=== PATIENT | female | born 1965 ===

== ENCOUNTER 2017-08-28 20:45 | Observation (INO) | payer MEDICAID, MEDICARE ==
[2017-08-28 21:22] VITALS: BMI 28.0
--- NOTE | 2017-08-28 21:30 | ED PDOC ---
Arrival/HPI - General Historian: Patient - History of Present Illness Time/Duration: Prior to Arrival Symptom Onset: Gradual Symptom Course: Improving Activities at Onset: Rest Context: Sitting <Anil Smith - Last Filed: 08/29/17 00:22> <Davis Blackburn - Last Filed: 08/29/17 00:52> <Ibrahima Moscoso - Last Filed: 08/31/17 18:37> - General Chief Complaint: Shortness Of Breath Time Seen by Provider: 08/28/17 20:47 - History of Present Illness Narrative History of Present Illness (Text): 08/28/17 21:31 Patient is a 51 year old female with a past medical history of COPD, hypothyroidism, chronic pain, polysubstance abuse, and hyperlipidemia who presents with complaints of cough, shortness of breath, and generalized body aches. Patient states she was recently admitted to [facility] where she was being treated for a respiratory infection. Patient states she signed out against medical advice from [facility] because she felt as though she wasn't being treated well. Patient denies fevers, chills, chest pain, abdominal pain, nausea , vomiting, diarrhea. PMD: Dr. Matthews PMH: as above Surgical history: appendectomy, left ankle fusion, hysterectomy Family history: non-contributory (Anil Smith) Past Medical History - Provider Review Nursing Documentation Reviewed: Yes - Infectious Disease Hx of Infectious Diseases: None - Tetanus Immunization Tetanus Immunization: Unknown - Cardiac Hx Cardiac Disorders: Yes Hx Hypertension: Yes - Pulmonary Hx Respiratory Disorders: Yes Hx Asthma: Yes Hx Emphysema: Yes - Neurological Hx Neurological Disorder: No - HEENT Hx HEENT Disorder: No - Renal Hx Renal Disorder: No - Endocrine/Metabolic Hx Endocrine Disorders: Yes Hx Hypothyroidism: Yes - Hematological/Oncological Hx Blood Disorders: No - Integumentary Hx Dermatological Disorder: No - Musculoskeletal/Rheumatological Hx Musculoskeletal Disorders: Yes Hx Arthritis: Yes - Gastrointestinal Hx Gastrointestinal Disorders: No - Genitourinary/Gynecological Hx Genitourinary Disorders: No - Psychiatric Hx Psychophysiologic Disorder: Yes Hx Substance Use: Yes - Surgical History Other/Comment: throat - Anesthesia Hx Anesthesia: Yes Hx Anesthesia Reactions: No (pt will not answer) Hx Malignant Hyperthermia: No - Suicidal Assessment Feels Threatened In Home Enviroment: No <Anil Smith - Last Filed: 08/29/17 00:22> <Davis Blackburn - Last Filed: 08/29/17 00:52> <Ibrahima Moscoso - Last Filed: 08/31/17 18:37> - Patient History Narrative Patient History: COPD on 2L home oxygen, Hypothyroidism, Hyperlipidemia, Anxiety (Anil Smith) Family/Social History - Physician Review Nursing Documentation Reviewed: Yes Family/Social History: No Known Family HX Smoking Status: Former Smoker Hx Alcohol Use: No Hx Substance Use: Yes Substance used: percocet, xanax <Anil Smith - Last Filed: 08/29/17 00:22> Allergies/Home Meds <Anil Smith - Last Filed: 08/29/17 00:22> <Davis Blackburn - Last Filed: 08/29/17 00:52> <Ibrahima Moscoso - Last Filed: 08/31/17 18:37> Allergies/Adverse Reactions: Allergies FISH Allergy (Verified 08/31/17 12:22) SWELLING NSAIDS (Non-Steroidal Anti-Inflamma Allergy (Verified 08/31/17 12:22) SWELLING Penicillins Allergy (Verified 08/31/17 12:22) SHORTNESS OF BREATH seafood Allergy (Uncoded 08/31/17 12:22) SHORTNESS OF BREATH shellfish Allergy (Uncoded 08/31/17 12:22) SHORTNESS OF BREATH vitamin d Allergy (Uncoded 08/31/17 12:22) SWELLING Home Medications: Home Meds Medication Instructions Recorded Confirmed Atorvastatin [Lipitor] 40 mg PO HS 06/28/17 08/31/17 Gabapentin [Neurontin] 1,200 mg PO HS 06/28/17 08/31/17 Gabapentin [Neurontin] 600 mg PO DAILY 06/28/17 08/31/17 Levothyroxine [Levoxyl] 0.025 mg PO DAILY 06/28/17 08/31/17 Ondansetron HCl [Zofran] 4 mg PO BID 06/28/17 08/31/17 Alprazolam [Xanax] 2 mg PO TID 08/31/17 08/31/17 Tiotropium [place] [employer] Inhaler 1 puff INH DAILY 05/11/18 05/11/18 [Spiriva Inhalation Handihaler Device] oxyCODONE/Acetaminophen [Percocet 5 - 325 mg PO PRN PRN 08/31/17 08/31/17 5/325 mg Tab] Review of Systems - Review of Systems Constitutional: absent: Fatigue, Fevers Eyes: absent: Vision Changes Respiratory: SOB, Cough Cardiovascular: absent: Chest Pain, Palpitations Gastrointestinal: absent: Abdominal Pain, Diarrhea, Nausea, Vomiting Musculoskeletal: Back Pain Neurological: absent: Headache, Dizziness Psychiatric: Anxiety <Anil Smith - Last Filed: 08/29/17 00:22> Physical Exam Vital Signs Reviewed: Yes Temperature: Afebrile Blood Pressure: Normal Pulse: Regular Respiratory Rate: Normal Appearance: Positive for: Well-Appearing, Non-Toxic, Comfortable, Unkept Pain Distress: None Mental Status: Positive for: Alert and Oriented X 3 - Systems Exam Head: Present: Atraumatic, Normocephalic Pupils: Present: PERRL Conjunctiva: Present: Normal Mouth: Present: Moist Mucous Membranes Neck: Present: Normal Range of Motion Respiratory/Chest: Present: Clear to Auscultation, Good Air Exchange, Respiratory Distress Cardiovascular: Present: Regular Rate and Rhythm, Murmurs, Normal S1, S2 Abdomen: Present: Normal Bowel Sounds. No: Tenderness Lower Extremity: Present: Normal Inspection. No: Edema Neurological: Present: GCS=15, CN II-XII Intact, Speech Normal Skin: Present: Dry, Normal Color Psychiatric: Present: Alert, Oriented x 3, Anxious. No: Normal Concentration <Anil Smith - Last Filed: 08/29/17 00:22> Vital Signs Temp Pulse Resp BP Pulse Ox 08/29/17 00:10 98.1 F 83 16 104/55 L 97 08/28/17 21:10 22 96 08/28/17 21:02 98.5 F 105 H 20 113/55 L 95 Medical Decision Making <Anil Smith - Last Filed: 08/29/17 00:22> <Davis Blackburn - Last Filed: 08/29/17 00:52> - Lab Interpretations I have reviewed the lab results: Yes - RAD Interpretation Guest Services Manager: ED Physician - EKG Interpretation Interpreted by ED Physician: Yes Type: 12 lead EKG <Ibrahima Moscoso - Last Filed: 08/31/17 18:37> ED Course and Treatment: 08/29/17 00:52 I had no involvement in this case. Requested by RN to place Duoneb bridge orders (Davis Blackburn) Patient complaining of cough, shortness of breath, and generalized myalgias. Patient has a past medical history of COPD, hypothyroidism, chronic pain, and polysubstance abuse. Lungs: rhonchi and wheezing, no tachypnea, normal respiratory rate. Patient Seen With Resident: In agreement with resident note which contains more details about the patient. Patient was seen and evaluated with resident. Came up with plan and treatment together. EKG: Ordered, reviewed, and independently interpreted the EKG. Rate : 105 BPM Rhythm : Sinus tachycardia. Interpretation : No ST-segment elevations or depressions, no T-wave inversions, normal intervals. Comparison : No previous EKG for comparison. 08/29/17 00:07 CXR did not show a clear infiltrated. Her clinical picture is concerning for COPD exacerbation. Will treat with Levaquin due to her high risk and potentially developing pneumonia. vBG ph low so obtained aBG which was also low , pCO2 not elevated. Will hydrate patient as well. She is receiving oxygen and saturating well in the ED. Case discussed with Dr. Dietrich, who accepts in to her service. Pt will go to Telemetry for COPD exacerbation. (Ibrahima Moscoso) - Lab Interpretations Lab Results: 08/28/17 22:23 08/28/17 22:23 Lab Results 08/28/17 23:47: pCO2 46 H, pO2 81.0, HCO3 18.0 L, ABG pH 7.20 L, ABG Total CO2 19.4 L, ABG O2 Saturation 97.7, ABG O2 Content 13.5 L, ABG Base Excess -9.6 L, ABG Hemoglobin 10.0 L, ABG Carboxyhemoglobin 1.9 H, POC ABG HHb (Measured) 2.2, ABG Methemoglobin 0.6, ABG O2 Capacity 13.8 L, Hgb O2 Saturation 95.3, FiO2 36.0 08/28/17 22:23: Sodium 146, Chloride 119 H, Potassium 4.2, Carbon Dioxide 18 L, Anion Gap 14, BUN 29 H, Creatinine 1.2, Est GFR ( Amer) 58, Est GFR (Non- Af Amer) 48, Random Glucose 112 H, Calcium 8.8, Magnesium 1.8, Lactate Dehydrogenase 541, Total Creatine Kinase 32 L, Troponin I < 0.01 08/28/17 22:23: pO2 209 H, VBG pH 7.17 L*, VBG pCO2 51.0, VBG HCO3 18.6 L, VBG Total CO2 20.2 L, VBG O2 Sat (Calc) 99.6 H, VBG Base Excess -10.1 L, VBG Potassium 4.1, Sodium 142.0, Chloride 118.0 H, Glucose 116 H, Lactate 0.9, FiO2 21.0, Venous Blood Potassium 4.1 08/28/17 22:23: WBC 7.9, RBC 3.77, Hgb 11.2 L, Hct 34.4 L, MCV 91.2, MCH 29.7, MCHC 32.6, RDW 14.1, Plt Count 186, MPV 11.1 H, Gran % 63.0, Lymph % (Auto) 29.8 , [place] % (Auto) 6.6 H, Eos % (Auto) 0.5 L, Baso % (Auto) 0.1, Gran # 5.00, Lymph # (Auto) 2.4, [place] # (Auto) 0.5, Eos # (Auto) 0.0, Baso # (Auto) 0.01 - RAD Interpretation Radiology Orders: 08/28/17 21:21 CHEST PORTABLE [RAD] Stat - Medication Orders Current Medication Orders: Discontinued Medications Acetaminophen (Tylenol 325mg Tab) 650 mg PO Q6H PRN PRN Reason: Fever >100.4 F Albuterol/Ipratropium (Duoneb 3 Mg/0.5 Mg (3 Ml) Ud) 3 ml IH Q15M [facility] Stop: 08/28/17 22:01 Last Admin: 08/28/17 22:49 Dose: 3 ml Albuterol/Ipratropium (Duoneb 3 Mg/0.5 Mg (3 Ml) Ud) 3 ml IH Q2H PRN PRN Reason: Shortness of Breath Albuterol/Ipratropium (Duoneb 3 Mg/0.5 Mg (3 Ml) Ud) 3 ml IH [id number] [facility] Last Admin: 08/29/17 13:49 Dose: Alprazolam (Xanax) 0.25 mg PO TID GREGORIO PRN Reason: Protocol Stop: 09/05/17 10:01 Last Admin: 08/29/17 10:14 Dose: 0.25 mg Re-Assess: Reassess Psych Meds Document 08/29/17 11:14 DARYL (Rec: 08/29/17 14:00 DARYL [id number]) Reassess Psych Med Ineffective-LIP notifed Alprazolam (Xanax) 0.5 mg PO TID GREGORIO PRN Reason: Protocol Stop: 09/05/17 10:01 Last Admin: 08/29/17 14:01 Dose: Not Given Non-Admin Reason: Patient Refused Atorvastatin Calcium (Lipitor) 40 mg PO HS GREGORIO Gabapentin (Neurontin) 600 mg PO DAILY GREGORIO PRN Reason: Protocol Last Admin: 08/29/17 10:13 Dose: 600 mg Re-Assess: Reassess Psych Meds Document 08/29/17 11:13 DARYL (Rec: 08/29/17 13:34 DARYL [id number]) Reassess Psych Med Effective Lactated Ringer's (Lactated Ringer's) 1,000 mls @ 100 mls/hr IV .Q10H GREGORIO Last Admin: 08/29/17 10:12 Dose: 100 mls/hr eMAR Start Stop Document 08/29/17 10:12 DARYL (Rec: 08/29/17 10:13 DARYL [id number]) Intravenous Solution Start Date 08/29/17 Start Time 10:13 Levofloxacin/Dextrose (Levaquin 500mg) 500 mg in 100 mls @ 100 mls/hr IVPB DAILY GREGORIO PRN Reason: Protocol Last Admin: 08/29/17 10:13 Dose: 100 mls/hr eMAR Start Stop Document 08/29/17 10:13 DARYL (Rec: 08/29/17 10:13 DARYL [id number]) Intravenous Solution Start Date 08/29/17 Start Time 10:13 End Date 08/29/17 End time 11:13 Total Infusion Time 60 Levothyroxine Sodium (Synthroid) 25 mcg PO DAILY GREGORIO Last Admin: 08/29/17 10:14 Dose: 25 mcg Methylprednisolone (Solu-Medrol) 125 mg IVP STAT STA Stop: 08/28/17 21:21 Last Admin: 08/28/17 22:47 Dose: 125 mg IVP Administration Document 08/28/17 22:47 MS (Rec: 08/28/17 22:48 [id number]) Charges for Administration # of IVP Administrations 1 Methylprednisolone (Solu-Medrol) 40 mg IV Q8H GREGORIO Last Admin: 08/29/17 10:14 Dose: 40 mg eMAR Start Stop Document 08/29/17 10:14 DARYL (Rec: 08/29/17 10:14 DARYL [id number]) Intravenous Solution Start Date 08/29/17 Start Time 10:14 End Date 08/29/17 End time 10:16 Total Infusion Time 2 Morphine Sulfate (Morphine) 4 mg IVP Q4H PRN PRN Reason: Pain, moderate (4-7) Last Admin: 08/29/17 10:09 Dose: 4 mg MAR Pain Assessment Document 08/29/17 10:09 DARYL (Rec: 08/29/17 11:43 DARYL [id number]) Pain Reassessment Is this a pain reassessment? Yes Sleep Is patient sleeping during reassessment? No Presence of Pain Presence of Pain Yes IVP Administration Document 08/29/17 10:09 DARYL (Rec: 08/29/17 11:43 DARYL [id number]) Charges for Administration # of IVP Administrations 1 Re-Assess: TASHI Pain Assessment Document 08/29/17 11:09 DARYL (Rec: 08/29/17 11:44 DARYL [id number]) Pain Reassessment Is this a pain reassessment? Yes Sleep Is patient sleeping during reassessment? No Presence of Pain Presence of Pain No Ondansetron HCl (Zofran Inj) 4 mg IVP Q6H PRN PRN Reason: Nausea/Vomiting Pantoprazole Sodium (Protonix Ec Tab) 40 mg PO 0630 [facility] Disposition/Present on Arrival - Present on Arrival Any Indicators Present on Arrival: No History of DVT/PE: No History of Uncontrolled Diabetes: No Urinary Catheter: Yes History of Decub. Ulcer: No History Surgical Site Infection Following: None - Disposition Have Diagnosis and Disposition been Completed?: Yes Disposition Time: 00:23 Patient Plan: Admission <Anil Smith - Last Filed: 08/29/17 00:22> <Davis Blackburn - Last Filed: 08/29/17 00:52> - Present on Arrival Any Indicators Present on Arrival: No - Disposition Have Diagnosis and Disposition been Completed?: Yes Disposition Time: 00:06 Patient Plan: Observation <Ibrahima Moscoso - Last Filed: 08/31/17 18:37> - Disposition Diagnosis: COPD exacerbation Disposition: HOSPITALIZED Patient Problems: Current Active Problems Problem Status Onset COPD exacerbation Acute Condition: GUARDED
[2017-08-28] MEDS: Albuterol-Ipratrop 3 mg / 0.5 (3 ml) UD IH SCH ×3 (22:00→22:49)
[2017-08-28 22:52] LABS: VENOUS BLOOD GAS BASE EXCESS -10.1 mmol/L (0.0-2.0); VENOUS BLOOD GAS PO2 209 mm/Hg (30-55)
[2017-08-28 22:57] LABS: VENOUS BLOOD PH 7.17 (7.32-7.43)
[2017-08-28 22:58] LABS: BASO # 0.01 K/mm3 (0.0-2.0); BASO % 0.1 % (0.0-3.0); EOS % 0.5 % (1.5-5.0); HEMOGLOBIN 11.2 g/dL (12.0-16.0); LYMPH # 2.4 (1.2-3.4); LYMPH % 29.8 % (22.0-35.0); MEAN CELL VOLUME 91.2 fl (80.0-105.0); MEAN CORPUSCULAR HEMOGLOBIN 29.7 pg (25.0-35.0); MEAN CORPUSCULAR HGB CONC 32.6 g/dl (31.0-37.0); MEAN PLATELET VOLUME 11.1 fl (7.0-11.0); MONO # 0.5 (0.1-0.6); MONO % 6.6 % (1.0-6.0); RBC 3.77 10^6/uL (3.5-6.1); RED CELL DISTRIBUTION WIDTH 14.1 % (11.5-14.5); WHITE BLOOD COUNT 7.9 10^3/ul (4.5-11.0)
[2017-08-28 23:02] LABS: BLOOD UREA NITROGEN 29 mg/dL (7-21); CALCIUM 8.8 mg/dL (8.4-10.5); GFR AFRICAN-AMERICAN 58; GFR NON-AFRICAN AMERICAN 48
[2017-08-28 23:13] LABS: TROPONIN I < 0.01 ng/mL
[2017-08-28 23:51] LABS: ARTERIAL BLOOD GAS O2 CAPACITY 13.8 mL/dl (16-24); ARTERIAL BLOOD GAS O2 CONTENT 13.5 ML/dl (15-23); ARTERIAL BLOOD GAS O2 SAT 97.7 % (95-98); ARTERIAL BLOOD GAS PCO2 46 mm/Hg (35-45); ARTERIAL BLOOD GAS TCO2 19.4 mmol.L (22-28)
[2017-08-29] MEDS ORDERED: Sodium Chloride 0.9% 1,000 ML IV STA (00:06)
[2017-08-29 00:10] VITALS: O2SAT 97
[2017-08-29] MEDS: Lactated Ringer's 1,000 ML IV SCH ×2 (00:16→10:12)
[2017-08-29] MEDS: Morphine 4 mg/ml ISec IVP PRN ×3 (00:28→10:09)
--- NOTE | 2017-08-29 08:08 | RAD ---
HISTORY: Shortness of breath. COMPARISON: No prior. FINDINGS: LUNGS: No active pulmonary disease. PLEURA: No significant pleural effusion identified, no pneumothorax apparent. CARDIOVASCULAR: No radiographic findings to suggest acute or significant cardiovascular disease. OSSEOUS STRUCTURES: No significant abnormalities. Incompletely visualize thoracolumbar scoliosis. VISUALIZED UPPER ABDOMEN: Normal. OTHER FINDINGS: None. IMPRESSION: No active disease.
[2017-08-29] MEDS ORDERED: Albuterol-Ipratrop 3 mg / 0.5 (3 ml) UD IH PRN (08:17)
[2017-08-29] MEDS ORDERED: MethylPREDNISolone 40 mg Vial IV SCH (08:30)
[2017-08-29] MEDS ORDERED: Levothyroxine 25 MCG TAB PO SCH (10:00)
[2017-08-29] MEDS ORDERED: levoFLOXacin 500 mg in D5W 500 MG/100 ML BAG IVPB SCH (10:00)
[2017-08-29 12:17] VITALS: BP 127/77; PULSE 61; RESP 18; TEMP 97.5
--- NOTE | 2017-08-29 13:13 | CARD ---
APPROVED REPORT EKG Measurement Heart [id number] <Conclusion> Sinus tachycardia Q in 3 PWNL
[2017-08-29] MEDS ORDERED: Albuterol-Ipratrop 3 mg / 0.5 (3 ml) UD IH SCH (14:00)
--- NOTE | 2017-08-29 23:44 | HP ---
HISTORY OF PRESENT ILLNESS: The patient is a 51-year-old, came to emergency room because of increasing shortness of breath, cough and congestion that is going on for couple of days. Denies any nausea or vomiting. No hemoptysis. No hematemesis. Patient states she was recently admitted in [facility] where she was given IV antibiotics but she stated that she signed against medical advice. Currently patient is demanding to have 2 mg of Xanax, otherwise she to go home also because she states is her birthday and her 's birthday tomorrow and her family is arranging for the republican. PAST MEDICAL HISTORY: She has past medical history significant for; 1. Hypertension. 2. History of bipolar disorder. 3. Anxiety disorder. 4. Hypothyroidism. 5. Neuropathy. ALLERGIES: SHE IS ALLERGIC TO FISH, NSAID, PENICILLIN, SEAFOOD, VITAMIN D, SHELLFISH. MEDICATIONS: At home, she is on levothyroxine 25 mcg daily, gabapentin 600 t.i.d. p.r.n., Lipitor 40 mg daily, Xanax 2 mg t.i.d., Zofran 4 mg every 6 hours p.r.n., gabapentin 1200 at bedtime. REVIEW OF SYSTEMS: Significant for cough and congestion. PHYSICAL EXAMINATION: GENERAL: She is awake, alert, oriented, communicative. VITAL SIGNS: She is afebrile, pulse 67, respirations 20, blood pressure 137/67. LUNGS: Bilateral fair airflow but has soft crackle diffuse bilaterally. Few expiratory rhonchi. HEART: S1, S2 audible. ABDOMEN: Soft, nontender. No rebound. No guarding. NEUROLOGICAL: She is awake, alert, oriented, communicative. LABORATORY EXAM: WBC 7.9, hemoglobin 11.2, hematocrit 34, platelets 186. Chemistry: Sodium 146, potassium 4.2, chloride 119, CO2 is 18, BUN 29, creatinine 1.2. Blood sugar of 112. LFTs are within normal limit. Troponin is 0.01. IMAGING DATA: She had x-ray of chest done. X-ray of chest is negative. ASSESSMENT: 1. Chronic obstructive pulmonary disease exacerbation. 2. Bronchospasm. 3. Anxiety disorder. 4. Polysubstance abuse. PLAN: We will continue patient on nebulizer treatment. I will discontinue IV fluid. Encourage p.o. intake. Lipitor 40 mg daily. We will start her on prednisone 40 mg every 8 hours. We will resume her levothyroxine. We will discontinue telemetry. She seems to be hemodynamically stable. I will follow up this patient in a.m. Angel Dietrich MD
[2017-08-30] MEDS ORDERED: Pantoprazole 40 mg EC Tab PO SCH (06:30)
--- NOTE | 2017-08-30 13:34 | CP.PCM.PCO ---
Physician Communication Note - Physician Communication Note Physician Communication Note: pt was d/c
== END 2017-08-29 14:19 | disposition left against medical advice (07) ==
LOC: ED 20:45 → ERH 08-29 00:06 → 2RNO 08-29 01:24
PROVIDERS: ADMIT Internal Medicine; ATTEND Internal Medicine
DX: J44.1 Chronic obstructive pulmonary disease with (acute) exacerbation (principal); J98.01 Acute bronchospasm; F41.9 Anxiety disorder, unspecified; E03.9 Hypothyroidism, unspecified; I10 Essential (primary) hypertension; F31.9 Bipolar disorder, unspecified; G62.9 Polyneuropathy, unspecified; Z90.710 Acquired absence of both cervix and uterus; Z90.49 Acquired absence of other specified parts of digestive tract; M19.90 Unspecified osteoarthritis, unspecified site; E78.5 Hyperlipidemia, unspecified; Z88.8 Allergy status to other drugs, medicaments and biological substances; Z88.6 Allergy status to analgesic agent; Z88.0 Allergy status to penicillin; Z91.013 Allergy to seafood; R40.2412 Glasgow coma scale score 13-15, at arrival to emergency department; F19.11 Other psychoactive substance abuse, in remission; G89.29 Other chronic pain; R00.0 Tachycardia, unspecified; Z99.81 Dependence on supplemental oxygen
CPT/HCPCS: 71045; 80048; 82550; 82803; 83615; 83735; 84484; 85025; 93005; 96365; 96375; 96376; 99285; G0378; J2270; J2920; J2930; J7120

== ENCOUNTER 2017-08-30 22:31 | Observation (INO) | payer OTHER ==
[2017-08-31] MEDS ORDERED: Albuterol-Ipratrop 3 mg / 0.5 (3 ml) UD IH STA ×2 (01:25→01:45)
--- NOTE | 2017-08-31 01:54 | ED PDOC ---
Arrival/HPI - General Chief Complaint: Shortness Of Breath Time Seen by Provider: 08/30/17 22:50 Historian: Patient - History of Present Illness Narrative History of Present Illness (Text): 08/31/17 01:51 A 52 year old female, whose past medical history include COPD, hypertension, bipolar disorder, presents to the emergency department with complaint of shortness of breath. The patient states that she was admitted a 2 days ago and received treatment for the same symptom. The patient states that she signed out because she had family business to take care of. She now returns with a recurrence of her COPD symptoms. The patient denies fevers, chills, headache, dizziness, sore throat, chest pain, abdominal pain, nausea, vomiting, diarrhea, neck/back pain, urinary/bowel changes or any other complaint. PMD: Dr. Dietrich Time/Duration: Other (Today) Symptom Onset: Gradual Symptom Course: Unchanged Activities at Onset: Rest, Light Context: Home Past Medical History - Provider Review Nursing Documentation Reviewed: Yes - Infectious Disease Hx of Infectious Diseases: None - Tetanus Immunization Tetanus Immunization: Unknown - Cardiac Hx Cardiac Disorders: Yes Hx Hypertension: Yes - Pulmonary Hx Respiratory Disorders: Yes Hx Asthma: Yes Hx Emphysema: Yes - Neurological Hx Neurological Disorder: No - HEENT Hx HEENT Disorder: No - Renal Hx Renal Disorder: No - Endocrine/Metabolic Hx Endocrine Disorders: Yes Hx Hypothyroidism: Yes - Hematological/Oncological Hx Blood Disorders: No - Integumentary Hx Dermatological Disorder: No - Musculoskeletal/Rheumatological Hx Falls: No - Gastrointestinal Hx Gastrointestinal Disorders: No - Genitourinary/Gynecological Hx Genitourinary Disorders: No - Psychiatric Hx Psychophysiologic Disorder: Yes Hx Substance Use: Yes - Surgical History Other/Comment: throat - Anesthesia Hx Anesthesia: Yes Hx Anesthesia Reactions: No (pt will not answer) Hx Malignant Hyperthermia: No - Suicidal Assessment Feels Threatened In Home Enviroment: No Family/Social History - Physician Review Nursing Documentation Reviewed: Yes Family/Social History: No Known Family HX Smoking Status: Current Some Days Smoker Hx Alcohol Use: No Hx Substance Use: Yes Substance used: percocet, xanax Allergies/Home Meds Allergies/Adverse Reactions: Allergies FISH Allergy (Verified 08/28/17 21:04) SWELLING NSAIDS (Non-Steroidal Anti-Inflamma Allergy (Verified 08/28/17 21:04) SWELLING Penicillins Allergy (Verified 08/28/17 21:04) SHORTNESS OF BREATH seafood Allergy (Uncoded 08/28/17 21:04) SHORTNESS OF BREATH shellfish Allergy (Uncoded 08/28/17 21:04) SHORTNESS OF BREATH vitamin d Allergy (Uncoded 08/28/17 21:04) SWELLING Home Medications: Home Meds Medication Instructions Recorded Confirmed Xanax 2 mg PO TID 06/28/15 06/28/17 Atorvastatin [Lipitor] 40 mg PO HS 06/28/17 06/28/17 Gabapentin [Neurontin] 1,200 mg PO HS 06/28/17 06/28/17 Gabapentin [Neurontin] 600 mg PO DAILY 06/28/17 06/28/17 Levothyroxine [Levoxyl] 0.025 mg PO DAILY 06/28/17 06/28/17 Ondansetron HCl [Zofran] 4 mg PO BID 06/28/17 06/28/17 Review of Systems - Physician Review All systems were reviewed & negative as marked: Yes - Review of Systems Constitutional: absent: Fevers, Night Sweats ENT: absent: Sore Throat Respiratory: SOB Cardiovascular: absent: Chest Pain Gastrointestinal: absent: Abdominal Pain, Stool Changes, Diarrhea, Nausea, Vomiting Genitourinary Female: absent: Urine Output Changes Musculoskeletal: absent: Back Pain, Neck Pain Neurological: absent: Headache, Dizziness Physical Exam Vital Signs Reviewed: Yes Vital Signs Temp Pulse Resp BP Pulse Ox 08/31/17 05:28 74 18 125/84 100 08/30/17 23:06 98.8 F 83 18 115/67 98 Temperature: Afebrile Blood Pressure: Normal Pulse: Regular Respiratory Rate: Normal Appearance: Positive for: Non-Toxic, Other (Patient appears drowsy, but arousable. ) Pain Distress: None Mental Status: Positive for: Alert and Oriented X 3 - Systems Exam Head: Present: Atraumatic, Normocephalic Pupils: Present: PERRL Extroacular Muscles: Present: EOMI Conjunctiva: Present: Normal Mouth: Present: Moist Mucous Membranes Neck: Present: Normal Range of Motion Respiratory/Chest: Present: Decreased Breath Sounds (Decreased breath sounds bilaterally.) Cardiovascular: Present: Regular Rate and Rhythm, Normal S1, S2. No: Murmurs Abdomen: No: Tenderness, Distention, Peritoneal Signs Back: Present: Normal Inspection Upper Extremity: Present: Normal Inspection. No: Cyanosis, Edema Lower Extremity: Present: Normal Inspection. No: Edema Neurological: Present: GCS=15, CN II-XII Intact, Speech Normal Skin: Present: Warm, Dry, Normal Color. No: Rashes Psychiatric: Present: Alert, Oriented x 3, Normal Insight, Normal Concentration Medical Decision Making ED Course and Treatment: 08/31/17 01:55 Impression: A 52 year old female presents to the emergency department with complaint of shortness of breath. Plan: -- EKG -- Chest X-Ray -- Labs -- Duoneb and SOLU-Medrol -- Reassess and disposition Prior Visits: Notes and results from previous visits were reviewed. Patient was last seen in the emergency department on 08/28/2017. The patient was treated in the emergency department for shortness of breath and cough. The patient was hospitalized. Progress Notes: 08/31/17 02:54: Case discussed with Dr. Dietrich who accepts patient to her service. EKG: Ordered, reviewed, and independently interpreted the EKG. Rate : 77 BPM Rhythm : NSR Interpretation : Non- specific ST- T changes 08/31/17 05:32: Chest X-Ray read and interpreted by me shows no acute processes. - Lab Interpretations Lab Results: 08/31/17 04:00 08/31/17 04:00 Lab Results 08/31/17 04:00: PT 9.9, INR 0.87 L, APTT 29.4 08/31/17 04:00: Alcohol, Quantitative < 10 08/31/17 04:00: WBC 13.5 H D, RBC 3.73, Hgb 11.3 L, Hct 34.4 L, MCV 92.2, MCH 30.3, MCHC 32.8, RDW 14.5, Plt Count 303, MPV 10.9 08/31/17 04:00: Sodium 148, Potassium 4.8, Chloride 117 H, Carbon Dioxide 21, Anion Gap 15, BUN 30 H, Creatinine 1.3 H, Est GFR ( Amer) 52, Est GFR ( Non-Af Amer) 43, Random Glucose 86, Calcium 8.4, Total Bilirubin 0.2, AST 27, ALT 26, Alkaline Phosphatase 67, Lactate Dehydrogenase 509, Total Creatine Kinase 21 L, Troponin I < 0.01, NT-Pro-B Natriuret Pep 2930 H, Total Protein 6.3 , Albumin 3.2, Globulin 3.1, Albumin/Globulin Ratio 1.0 L I have reviewed the lab results: Yes - RAD Interpretation Radiology Orders: 08/31/17 03:06 CHEST PORTABLE [RAD] Stat - EKG Interpretation Interpreted by ED Physician: Yes Type: 12 lead EKG - Medication Orders Current Medication Orders: Albuterol/Ipratropium (Duoneb 3 Mg/0.5 Mg (3 Ml) Ud) 3 ml IH Q4H PRN PRN Reason: Shortness of Breath Discontinued Medications Albuterol/Ipratropium (Duoneb 3 Mg/0.5 Mg (3 Ml) Ud) 3 ml IH ONCE STA Stop: 08/31/17 01:26 Last Admin: 08/31/17 01:25 Dose: 3 ml Albuterol/Ipratropium (Duoneb 3 Mg/0.5 Mg (3 Ml) Ud) 3 ml IH ONCE STA Stop: 08/31/17 01:46 Last Admin: 08/31/17 01:45 Dose: 3 ml Methylprednisolone (Solu-Medrol) 125 mg IVP ONCE ONE Stop: 08/31/17 01:52 Last Admin: 08/31/17 03:20 Dose: 125 mg IVP Administration Document 08/31/17 03:20 AD (Rec: 08/31/17 03:59 AD [id number]) Charges for Administration # of IVP Administrations 1 - Scribe Statement The provider has reviewed the documentation as recorded by the Rafaelaibe Lilian Leija Provider Scribe Attestation: All medical record entries made by the Scribe were at my direction and personally dictated by me. I have reviewed the chart and agree that the record accurately reflects my personal performance of the history, physical exam, medical decision making, and the department course for this patient. I have also personally directed, reviewed, and agree with the discharge instructions and disposition. Disposition/Present on Arrival - Present on Arrival Any Indicators Present on Arrival: No History of DVT/PE: No History of Uncontrolled Diabetes: No Urinary Catheter: No History of Decub. Ulcer: No History Surgical Site Infection Following: None - Disposition Have Diagnosis and Disposition been Completed?: Yes Diagnosis: COPD exacerbation Disposition: HOSPITALIZED Disposition Time: 04:52 Patient Plan: Observation Patient Problems: Current Active Problems Problem Status Onset COPD exacerbation Acute Condition: STABLE
[2017-08-31 04:24] LABS: HEMOGLOBIN 11.3 g/dL (12.0-16.0); MEAN CELL VOLUME 92.2 fl (80.0-105.0); MEAN CORPUSCULAR HEMOGLOBIN 30.3 pg (25.0-35.0); MEAN CORPUSCULAR HGB CONC 32.8 g/dl (31.0-37.0); MEAN PLATELET VOLUME 10.9 fl (7.0-11.0); RBC 3.73 10^6/uL (3.5-6.1); RED CELL DISTRIBUTION WIDTH 14.5 % (11.5-14.5); WHITE BLOOD COUNT 13.5 10^3/ul (4.5-11.0)
[2017-08-31 04:32] LABS: ALBUMIN 3.2 g/dL (3.0-4.8); ALT/SGPT 26 U/L (7-56); AST/SGOT 27 U/L (14-36); BLOOD UREA NITROGEN 30 mg/dL (7-21); CALCIUM 8.4 mg/dL (8.4-10.5); GFR AFRICAN-AMERICAN 52; GFR NON-AFRICAN AMERICAN 43; INR 0.87 (0.93-1.08); PROTHROMBIN TIME 9.9 SECONDS (9.4-12.5)
[2017-08-31 04:33] LABS: PARTIAL THROMBOPLASTIN TIME 29.4 Seconds (25.1-36.5)
[2017-08-31 04:44] LABS: B-TYPE NATRIURETIC PEPTIDE 2930 pg/mL (0-450); TROPONIN I < 0.01 ng/mL
[2017-08-31] MEDS ORDERED: Albuterol-Ipratrop 3 mg / 0.5 (3 ml) UD IH PRN ×2 (04:52→10:51)
[2017-08-31 05:29] VITALS: O2SAT 100
[2017-08-31 06:43] LABS: PHENCYCLIDINE, UR NEGATIVE (NEGATIVE)
[2017-08-31 06:54] LABS: BARBITURATES, UR NEGATIVE (NEGATIVE); OPIATES, UR POSITIVE (NEGATIVE)
[2017-08-31 07:12] LABS: BENZODIAZEPINES, UR POSITIVE (NEGATIVE)
--- NOTE | 2017-08-31 09:04 | RAD ---
HISTORY: sob COMPARISON: 08/28/2017 FINDINGS: LUNGS: No active pulmonary disease. PLEURA: No significant pleural effusion identified, no pneumothorax apparent. CARDIOVASCULAR: Normal. OSSEOUS STRUCTURES: No significant abnormalities. VISUALIZED UPPER ABDOMEN: Normal. OTHER FINDINGS: None. IMPRESSION: No active disease.
[2017-08-31] MEDS ORDERED: MethylPREDNISolone 40 mg Vial IV SCH (11:00)
[2017-08-31 12:16] VITALS: RESP 20
--- NOTE | 2017-08-31 12:41 | HP ---
HISTORY OF PRESENT ILLNESS: The patient is 52 years old, who was just admitted on 08/29/2017 with COPD exacerbation. She was given IV steroid. She was started on nebulizer treatment with some relief, but the patient signed against medical advice . She said she had birthday next day and it is her 's birthday also and family is giving big birthday constitution party, so she cannot stay at home. However, the patient went home. She did smoke, but later on her shortness of breath got worse. She was having cough, congestion. No history of fever. No history of hemoptysis. No chills. No dizziness. Does not have any chest pain. Does complain of some chest pain when she coughs. PAST MEDICAL HISTORY: Significant for, 1. COPD. 2. Hypertension. 3. Bipolar disorder. 4. Anxiety disorder. ALLERGY: SHE IS ALLERGY TO FISH AND NSAIDS. SHE IS ALSO ALLERGIC TO PENICILLIN, SEAFOOD AND VITAMIN D. MEDICATIONS AT HOME: She is on Levoxyl 25 mcg daily, gabapentin 600 daily, gabapentin 1200 at bedtime, Lipitor 40 mg at bedtime, Xanax 2 mg 3 times a day, Zofran as needed, Spiriva. SOCIAL HISTORY: She is active smoker. Socially drinks. Does admit using drugs. PHYSICAL EXAMINATION: GENERAL: She is awake and alert. Mild shortness of breath. VITAL SIGNS: She is afebrile, pulse 83, respirations 18, blood pressure 115/67. LUNGS: Bilateral expiratory rhonchi and crackle. HEART: S1 and S2 audible. ABDOMEN: Soft. Nontender. No rebound. No guarding. NEUROLOGIC: She is awake and alert, able to communicate. Moves all extremities. EXTREMITIES: Bilateral leg, no edema. LABORATORY EXAM: WBC is 13.5, hemoglobin 11.3, hematocrit 34.4, platelet of 303. PT 9.9, INR Is 0.87. Chemistry: Sodium 148, potassium 4.8, chloride 117, CO2 of 21, BUN 30, creatinine 1.3, blood sugar of 86. LFTs are within normal limit. BNP is 2930. Troponin 0.01. Urine drug screen positive for opiates. She had x-ray of chest done that shows no infiltrate. ASSESSMENT: 1. Chronic obstructive pulmonary disease exacerbation. 2. Bronchospasm. 3. Active smoker. 4. Opiate abuse. 5. History of hypertension. 9. Hypothyroidism. 10. History of bipolar disorder. PLAN: We will start her on IV steroid. We will continue her on usual medications including gabapentin and levothyroxine. Out of bed to chair. The patient is hemodynamically stable I will discontinue her telemetry. Angel Dietrich MD
--- NOTE | 2017-08-31 13:47 | CARD ---
APPROVED REPORT EKG Measurement Heart [id number] CO [id number] <Conclusion> Normal sinus rhythm Minimal voltage criteria for LVH, may be normal variant Q in 3 No change
[2017-08-31] MEDS ORDERED: Albuterol-Ipratrop 3 mg / 0.5 (3 ml) UD IH SCH (14:00)
[2017-08-31 14:41] VITALS: BMI 32.3
[2017-08-31] MEDS ORDERED: Pneumococcal 23-Valent Vaccine IM ONE (14:41)
[2017-08-31 17:58] VITALS: BP 134/79; PULSE 88; TEMP 98.3
[2017-09-01] MEDS ORDERED: Pantoprazole 40 mg EC Tab PO SCH (06:30)
== END 2017-08-31 19:01 | disposition left against medical advice (07) ==
LOC: ED 22:31 → ERH 08-31 04:49 → 2RSO 08-31 07:17
PROVIDERS: ADMIT Internal Medicine; ATTEND Internal Medicine
DX: J44.1 Chronic obstructive pulmonary disease with (acute) exacerbation (principal); F11.10 Opioid abuse, uncomplicated; F17.200 Nicotine dependence, unspecified, uncomplicated; I10 Essential (primary) hypertension; F31.9 Bipolar disorder, unspecified; E03.9 Hypothyroidism, unspecified; F41.9 Anxiety disorder, unspecified; Z88.0 Allergy status to penicillin
CPT/HCPCS: 71045; 80053; 80320; 80324; 80345; 80346; 80349; 80353; 80358; 80361; 82550; 83615; 83880; 83992; 84484; 85027; 85610; 85730; 93005; 94640; 96374; 96376; 99285; G0378; J2920; J2930